=== PATIENT | female | born 1965 | race Caucasian/White ===

== ENCOUNTER 2024-07-13 11:38 | Outpatient (CLI) | payer BC, SELFPAY ==
--- NOTE | ~2024-07-13 | XR_ITS ---
Clinical Indication: Cough PA and lateral views of the chest: Comparison: None Findings: The lungs are clear, without evidence of focal consolidation or pleural effusion. Cardiome diastinal silhouette is within normal limits. Bones and soft tissues are unremarkable. Impression: Normal chest. Reviewed, dictated and finalized at location . [employer] Impression: Normal chest.
== END 2024-07-13 11:39 | disposition home or self-care (01) ==
DX: R05.9 Cough, unspecified (principal)
CPT/HCPCS: 71046